=== PATIENT | female | born 1965 ===

== ENCOUNTER 2016-06-13 23:47 | Emergency (ER) | payer MEDICARE, MEDICAID ==
[~2016-06-13 23:47] MED LIST: ADVIL200 MG; ALBUTEROL SULF8.5 G1 IH; ALBUTEROL SULF8.5 G2 INH; ALLOPURINOL; ALLOPURINOL100 MG PO; ASPIR 8181 M1 PO; AUGMENTIN875 MG PO; BACTRIM DS TABL1 TAB PO; BACTRIM DS1 TA1 PO; CALCITRIOL; CARVEDILOL; CARVEDILOL25 M1 PO; CARVEDILOL25 MG PO; CIPRO250 MG PO; COLACE100 MG PO; COREG12.5 MG PO; COREG6.25 MG PO; DARVOCET-N 1001 TAB; DIFLUCAN100 MG PO; ELIQUIS5 M1 PO; ENALAPRIL MALEA10 MG PO; ENALAPRIL MALEA20 MG PO; ESTRADIOL1 MG PO; ESTRADIOL2 MG PO; FLEXERIL10 MG PO; FUROSEMIDE40 MG PO; GABAPENTIN300 MG PO; GLUCOPHAGE1000 MG PO; GLUCOPHAGE500 MG; H PO; HUMALOG100 U/ML SQ; HUMALOG100 UNIT/1 SC; HUMALOG100 UNIT/2 SQ; HUMULIN 70/30 V10 ML; HYDROCHLOROTH12.5 MG PO; HYDROCODON-ACE1 EA16 PO; INSULIN NPH SC; IRON; IRON325 M1 PO; IRON325 M3 PO; JANUVIA100 MG; KEFLEX PO; KEFLEX250 M2; LANTUS100 U/ML SC; LANTUS100 UNITS/ SC; LASIX; LASIX80 M1 PO; LEVOTHROID75 MCG PO; LEVOTHROID88 MCG PO; LEVOTHYROXINE; LEXAPRO20 MG PO; LIPITOR20 MG PO; LIPITOR80 MG; LISINOPRIL20 MG PO; LISINOPRIL40 M1 PO; LISINOPRIL40 MG PO; NEURONTIN300 M1 PO; NEURONTIN400 M1 PO; NORCO 5-325 TA1 EACH PO; NORCO 5/325 TAB1 TAB PO; NORCO 5/3251 TAB PO; NORVASC10 M2 PO; NORVASC10 MG PO; NORVASC5 MG PO; NOVOLIN N100 U/ML SQ; NOVOLOG100 U/M SQ; NPH INSULIN; OMEPRAZOLE20 MG PO; PAROXETINE HCL10 M2 PO; PAROXETINE HCL20 M2 PO; POTASSIUM; PREMARIN0.9 MG PO; PREVACID15 MG; PRILOSEC OTC20 M1 PO; PRILOSEC OTC20 MG PO; PRINIVIL5 MG; PROTONIX40 MG PO; RENAL MULTIVIT PO; RENO PO; RENVELA800 M1 PO; REQUIP0.25 M1 PO; SYNTHROID88 MC1 PO; TERAZOSIN HCL2 M1 PO; TRAMADOL HCL50 M2 PO; TRICOR145 M2 PO; TRICOR145 MG PO; TRIPHROCAPS SOFT1 M1 PO; TYLENOL W/CODEI1 TAB PO; TYLENOL325 MG PO; VASOTEC20 MG PO; VITAMIN; VITAMIN D; VITAMIN D 22000 UNIT PO; VITAMIN D32000 UNI3 PO; ZANAFLEX4 M1 PO; ZYLOPRIM100 M1 PO; [UNRECOGNIZED DRUG - OTHER] MC
== END 2016-06-14 01:55 ==
LOC: EDMED 23:47
DX: S43.422A Sprain of left rotator cuff capsule, initial encounter (principal); E11.22 Type 2 diabetes mellitus with diabetic chronic kidney disease; I12.0 Hypertensive chronic kidney disease with stage 5 chronic kidney disease or end stage renal disease; N18.6 End stage renal disease; Z99.2 Dependence on renal dialysis; Z79.4 Long term (current) use of insulin; Z79.899 Other long term (current) drug therapy; X58.XXXA Exposure to other specified factors, initial encounter
CPT/HCPCS: J1885

== ENCOUNTER 2016-07-25 20:23 | Emergency (ER) | payer MEDICAID, MEDICARE ==
[2016-07-25 22:08] LABS: HCT-HEMATOCRIT 34.2 % (34.0-49.0); HGB-HEMOGLOBIN 10.7 gm/dl (12.0-15.5); MCH (MEAN CORPUSCULAR HGB) 29.7 pg (28.0-32.0); MCHC MEAN CORPUSCULAR HGB CONC 31.3 % (32.0-36.0); MEAN PLATELET VOLUME 9.8 cmc (9.4-12.4); PLATELET COUNT 312 tho/cmm (150-450); RED CELL DISTRIBUTION WIDTH 14.9 % (12.4-16.4); WHITE BLOOD COUNT 11.6 tho/cmm (4.0-10.0)
[2016-07-25 22:20] LABS: ANION GAP 16 mmol/L (0-20); BLOOD UREA NITROGEN 50 mg/dl (6-24); CARBON DIOXIDE-VENOUS 29 mmol/L (22-32); CHLORIDE 95 mmol/l (96-110); CREATININE 5.17 mg/dl (0.50-1.10); GLUCOSE 186 mg/dL (70-110); MAGNESIUM 1.9 mg/dl (1.8-2.6); POTASSIUM 5.2 mmol/L (3.7-5.1); SODIUM 135 mmol/L (135-145); eGFR VALUE FOR BLACK 10 mL/Min
[2016-07-25 22:24] LABS: CALCIUM 6.5 mg/dl (8.5-10.5)
[2016-07-25 22:40] LABS: BAND % 1 % (0-20); BAND ABSOLUTE COUNT 0.1 tho/cmm (0-2.0); EOSINOPHIL % 3 % (0-7)
[2016-07-25] MEDS ORDERED: OS-CAL 500+D31 EAC1 PO (23:32)
== END 2016-07-25 23:45 ==
LOC: EDMED 20:23
PROVIDERS: Emergency Medicine
DX: M62.838 Other muscle spasm (principal); E83.51 Hypocalcemia; E11.22 Type 2 diabetes mellitus with diabetic chronic kidney disease; I12.0 Hypertensive chronic kidney disease with stage 5 chronic kidney disease or end stage renal disease; N18.6 End stage renal disease; Z99.2 Dependence on renal dialysis
CPT/HCPCS: J0610

== ENCOUNTER 2016-08-13 22:56 | Emergency (ER) | payer MEDICARE, MEDICAID ==
[~2016-08-13 22:56] MED LIST changes: +OS-CAL 500+D31 EAC1 PO
[2016-08-13] MEDS ORDERED: ELIQUIS5 M1 PO (23:42)
[2016-08-13] MEDS ORDERED: ROSUVASTATIN CA10 MG PO (23:43)
[2016-08-13] MEDS ORDERED: LASIX80 M1 PO (23:44)
[2016-08-13] MEDS ORDERED: LYRICA100 MG/CAP PO (23:45)
[2016-08-13] MEDS ORDERED: LYRICA75 MG/CAP PO (23:45)
[2016-08-13] MEDS ORDERED: VENTOLIN HFA18 G2 PO (23:46)
[2016-08-14 00:07] LABS: BLOOD UREA NITROGEN 28 mg/dl (6-24); CARBON DIOXIDE-VENOUS 24 mmol/L (22-32); CHLORIDE 90 mmol/l (96-110); CREATININE 5.61 mg/dl (0.50-1.10); SODIUM 125 mmol/L (135-145); eGFR VALUE FOR BLACK 9 mL/Min
[2016-08-14 00:10] LABS: ANION GAP 16 mmol/L (0-20); GLUCOSE 457 mg/dL (70-110); POTASSIUM 4.7 mmol/L (3.7-5.1)
[2016-08-15] MEDS ORDERED: CALCIUM PO (02:37)
[2016-08-15] MEDS ORDERED: CYCLOBENZAPRINE5 M1 PO (02:39)
== END 2016-08-14 00:37 ==
LOC: EDMED 22:56
PROVIDERS: Emergency Medicine
DX: S39.012A Strain of muscle, fascia and tendon of lower back, initial encounter (principal); I12.9 Hypertensive chronic kidney disease with stage 1 through stage 4 chronic kidney disease, or unspecified chronic kidney disease; E11.65 Type 2 diabetes mellitus with hyperglycemia; E11.22 Type 2 diabetes mellitus with diabetic chronic kidney disease; N18.9 Chronic kidney disease, unspecified; E83.51 Hypocalcemia; E78.5 Hyperlipidemia, unspecified; Z90.710 Acquired absence of both cervix and uterus; Z90.49 Acquired absence of other specified parts of digestive tract; Z79.4 Long term (current) use of insulin; W19.XXXA Unspecified fall, initial encounter

== ENCOUNTER 2016-08-15 02:20 | Emergency (ER) | payer MEDICARE, MEDICAID ==
[~2016-08-15 02:20] MED LIST changes: +LYRICA100 MG/CAP PO; +LYRICA75 MG/CAP PO; +ROSUVASTATIN CA10 MG PO; +VENTOLIN HFA18 G2 PO
[2016-08-15] MEDS ORDERED: CALCIUM PO (02:37)
[2016-08-15] MEDS ORDERED: CYCLOBENZAPRINE5 M1 PO (02:39)
[2016-08-15 03:34] LABS: BASO % 0.7 % (0-2); BASO ABSOLUTE COUNT 0.1 tho/cmm (0.0-0.2); EOS % 4.7 % (0-7); EOSINOPHIL ABSOLUTE COUNT 0.4 tho/cmm (0.0-0.7); HCT-HEMATOCRIT 32.7 % (34.0-49.0); HGB-HEMOGLOBIN 10.6 gm/dl (12.0-15.5); IMMATURE GRANULOCYTES ABSOLUTE 0.08 tho/cmm (0-0.03); LYMPH % 30.3 % (20-45); LYMPH ABSOLUTE COUNT 2.4 tho/cmm (0.8-4.5); MCH (MEAN CORPUSCULAR HGB) 30.1 pg (28.0-32.0); MCHC MEAN CORPUSCULAR HGB CONC 32.4 % (32.0-36.0); MCV (MEAN CELL VOLUME) 92.9 fl (82.0-96.0); MEAN PLATELET VOLUME 9.7 cmc (9.4-12.4); MONO % 5.9 % (0-12); MONOCYTE ABSOLUTE COUNT 0.5 tho/cmm (0.0-1.2); NEUTROPHIL ABSOLUTE COUNT 4.6 tho/cmm (1.6-8.0); NEUTROPHIL-AUTOMATED 4.6 tho/cmm (1.6-8.0); NEUTROPHILS % 57.4 % (40-80); PLATELET COUNT 220 tho/cmm (150-450); RED BLOOD COUNT 3.52 mil/cmm (4.00-5.20); RED CELL DISTRIBUTION WIDTH 15.8 % (12.4-16.4)
[2016-08-15 03:44] LABS: ALB/GLOB RATIO 0.7 (0.8-2.0); ALBUMIN 3.2 g/dl (3.5-5.0); ALKALINE PHOSPHATASE 130 U/L (33-138); ALT/SGPT 25 U/L (12-78); ANION GAP 20 mmol/L (0-20); AST/SGOT 10 U/L (10-40); BILIRUBIN,TOTAL 0.4 mg/dl (0-1.5); CALCIUM 8.1 mg/dl (8.5-10.5); CARBON DIOXIDE-VENOUS 24 mmol/L (22-32); CHLORIDE 92 mmol/l (96-110); MAGNESIUM 1.9 mg/dl (1.8-2.6); POTASSIUM 3.9 mmol/L (3.7-5.1); SODIUM 132 mmol/L (135-145); eGFR VALUE FOR BLACK 6 mL/Min
[2016-08-15 04:00] LABS: BLOOD UREA NITROGEN 46 mg/dl (6-24); CREATININE 8.12 mg/dl (0.50-1.10); GLUCOSE 219 mg/dL (70-110)
== END 2016-08-15 04:33 ==
LOC: EDMED 02:20
PROVIDERS: Physician Assistant
DX: R25.2 Cramp and spasm (principal); K21.9 Gastro-esophageal reflux disease without esophagitis; I12.9 Hypertensive chronic kidney disease with stage 1 through stage 4 chronic kidney disease, or unspecified chronic kidney disease; E11.22 Type 2 diabetes mellitus with diabetic chronic kidney disease; N18.9 Chronic kidney disease, unspecified; Z79.4 Long term (current) use of insulin; Z99.2 Dependence on renal dialysis